=== PATIENT | female | born 1970 | race American Indian/Alaskan Native ===

== ENCOUNTER 2017-01-09 19:13 | Inpatient (IN) | payer OTHER ==
[2017-01-09 20:07] LABS: Basophils % (Auto) 0.4 % (0.0-1.8); Eosinophils % (Auto) 0.2 % (0.0-4.3); Hemoglobin 12.5 gm/dl (10.1-14.3); Mean Corpuscular HGB Conc 32 % (30-34); Mean Corpuscular Hemoglobin 27 pg (28-32); Mean Corpuscular Volume 84 fl (79-97); Platelet Count 287 K/mm3 (140-440); Red Blood Count 4.66 M/mm3 (3.65-5.03); Red Cell Distribution Width 14.5 % (13.2-15.2); White Blood Count 12.5 K/mm3 (4.5-11.0)
[2017-01-09 20:22] LABS: Alanine Aminotransferase 15 units/L (7-56); Albumin 4.1 g/dL (3.9-5); Albumin/Globulin Ratio 1.1 %; Alkaline Phosphatase 58 units/L (35-129); Anion Gap 17 mmol/L; BUN/Creatinine Ratio 7.77; Bilirubin,Total 0.7 mg/dL (0.1-1.2); Blood Urea Nitrogen 7 mg/dL (7-17); Calcium 8.8 mg/dL (8.4-10.2); Carbon Dioxide 24 mmol/L (22-30); Chloride 98.3 mmol/L (98-107); Glucose 122 mg/dL (65-100); Lipase 25 units/L (13-60); Potassium 4.1 mmol/L (3.6-5.0); Sodium 135 mmol/L (137-145); Total Protein 7.7 g/dL (6.3-8.2)
[2017-01-09] MEDS ORDERED: ZOFRAN ODT PO ONE (20:31)
--- NOTE | 2017-01-09 20:33 | Emergency Department Report ---
Chief Complaint: Abdominal Pain Stated Complaint: N/V Time Seen by Provider: 01/09/17 20:27 - HPI History of Present Illness: 46-year-old -Thai female comes in for nausea and vomiting that started Tuesday. Patient pushes unable to keep any food down or fluids. Patient has no past medical history currently on no medication. She complains of right side abdominal pain. Sitting forward makes it better. Lying back makes it worse. They have tried [id number] Pepto-Bismol as well as T's with no relief. - Exam Vital Signs: Vital Signs 01/09/17 01/09/17 19:40 19:44 Temperature 98.3 F 98.5 F Pulse Rate 73 73 Respiratory 20 20 Rate Blood Pressure 167/100 Blood Pressure 167/100 [Left] O2 Sat by Pulse 100 100 Oximetry Physical Exam: Patient's alert and oriented. She appears to be discomfort. Cardiovascular S1- S2 regular rate and rhythm respiratory clear to station bilateral abdomen soft positive Cowart's sign tenderness to the right upper quadrant. MSE screening note: Focused history and physical exam performed. Due to findings the following was ordered: Abdominal protocol ordered. Ultrasound limited right upper quadrant concern for gallbladder disease. Patient be evaluated in the main ER also patient was ordered Zofran 8 mg by mouth. ED Medical Decision Making - Lab Data Result diagrams: 01/09/17 19:50 01/09/17 19:50 ED Disposition for MSE Condition: Stable Instructions: Abdominal Pain (ED)
--- NOTE | 2017-01-09 21:52 | Ultrasound Report ---
FINAL REPORT EXAM: US ABDOMEN LIMITED HISTORY: nausea vomiting or right upper quadrant tenderness TECHNIQUE: Ultrasound abdomen PRIORS: None. FINDINGS: No focal abnormality is identified within the visualized portion of the liver parenchyma. No evidence for intrahepatic or extrahepatic biliary dilatation. Common bile duct is dilated 6.5 centimeters Shadowing echogenic foci are present within the lumen of the gallbladder. Gallbladder wall is mildly thickened measuring 4.3 centimeters. There is small amount pericholecystic fluid noted. Pancreas is incompletely seen. Visualized portions are unremarkable. The right kidney is There is no evidence for hydronephrosis IMPRESSION: Cholelithiasis. Dilated common bile duct. Findings suggestive of choledocholithiasis and/or cholecystitis
[2017-01-09] MEDS ORDERED: NACL 0.9% 1000 ML 1,000 ML ONE (21:59)
[2017-01-09] MEDS ORDERED: NACL 0.9% 1000 ML 1,000 ML IV ONE (22:02)
[2017-01-09] MEDS ORDERED: MORPHINE IV ONE (22:02)
[2017-01-09] MEDS ORDERED: ZOFRAN IV ONE ×2 (22:02→23:25)
[2017-01-09 22:11] LABS: Bacteria,Urine 2+ /HPF (Negative); Bilirubin,Urine NEG (Negative); Blood,Urine LG (Negative); Ketones,Urine TR mg/dL (Negative); Leukocyte Esterase,Urine LG (Negative); Mucus,Urine 2+ /HPF; Nitrite,Urine NEG (Negative); Urobilinogen,Urine < 2.0 mg/dL (<2.0)
--- NOTE | 2017-01-09 22:28 | Emergency Department Report ---
HPI - General Chief Complaint: Abdominal Pain Time Seen by Provider: 01/09/17 20:57 - HPI HPI: The patient is a 46-year-old female who presents for evaluation of abdominal pain. The patient reports right upper quadrant abdominal pain for the past 2 days, constant, worsening, currently 9/10 in severity, sharp and at times squeezing in quality, exacerbated with drinking or eating. The patient also reports associated nausea, , severe, on and off. The patient denies chest pain, dyspnea, diarrhea, blood in the stool, dark tarry stool, dysuria, hematuria, flank pain, genital discharge, inability to pass flatus. ED Past Medical Hx - Past Medical History Previous Medical History?: No - Surgical History Past Surgical History?: Yes Additional Surgical History: tubal ligation. x3 - Social History Smoking Status: Never Smoker Substance Use Type: None - Medications Home Medications: Home Medications Medication Instructions Recorded Confirmed Last Taken Type HYDROcodone/APAP 7.5-325 [[place] 1 each PO Q8HR PRN #12 tablet 01/09/17 Unknown Rx 7.5-325 mg TAB] Ondansetron [Zofran TAB] 4 mg PO Q8HR PRN #15 tablet 01/09/17 Unknown Rx ED Review of Systems ROS: Stated complaint: N/V Other details as noted in HPI Constitutional: denies: fever ENT: denies: throat or neck pain Respiratory: denies: cough, shortness of breath Cardiovascular: denies: chest pain Endocrine: denies unexplained weight loss or gain Gastrointestinal: reports abdominal pain, nausea, vomiting Genitourinary: denies: dysuria Musculoskeletal: denies: leg swelling Skin: denies: rash Neurological: denies: headache Hematological/Lymphatic: denies: easy bleeding or easy bruising Psych: denies sadness or hopelessness Physical Exam - Physical Exam Vital Signs: Vital Signs 01/09/17 01/09/17 19:40 19:44 Temperature 98.3 F 98.5 F Pulse Rate 73 73 Respiratory 20 20 Rate Blood Pressure 167/100 Blood Pressure 167/100 [Left] O2 Sat by Pulse 100 100 Oximetry Physical Exam: General: well-nourished, well-developed, no acute distress Head: Normocephalic, atraumatic Eyes: normal sclera ENT: Mucous membranes are pale and dry Neck: No neck stiffness, no cervical adenopathy Respiratory: Breath sounds equal bilaterally, no wheezing, rales, or rhonchi Cardio: S1 and S2 present, no murmurs, rubs, gallops, capillary refill is delayed Abdomen: Normoactive bowel sounds, soft abdomen, right upper quadrant tenderness to palpation present, no pain in McBurney's point, no rigidity, no guarding or rebound tenderness Chest WALL/Back: No tenderness to palpation of the chest wall, no CVA tenderness with percussion Musc: No pitting edema Skin: No rash Neuro: no facial drooping, normal speech Psych: Normal affect ED Course Vital Signs 01/09/17 01/09/17 19:40 19:44 Temperature 98.3 F 98.5 F Pulse Rate 73 73 Respiratory 20 20 Rate Blood Pressure 167/100 Blood Pressure 167/100 [Left] O2 Sat by Pulse 100 100 Oximetry ED Medical Decision Making - Lab Data Result diagrams: 01/09/17 19:50 01/09/17 19:50 - Medical Decision Making The patient was seen and examined by myself. The patient is placed on a clinical research monitor and continuous pulse ox. On initial evaluation, the patient was found to be in no distress. Evaluation orders are placed. IV access is established and the patient is given 1 L normal saline fluid bolus and Zofran for nausea, and IV morphine for pain. Lab results revealed leukocytosis, WBC 12.5, and otherwise labs were non-concerning including normal levels of hemoglobin, hematocrit, renal function, LFTs, lipase, and negative test. Ultrasound of the abdomen reveals findings suggestive of acute cholecystitis. CT scan of the abdomen and pelvis with IV contrast is positive for cholecystitis, and negative for biliary duct dilation. Zosyn and Flagyl are ordered for the patient. The patient is given an IV dose of Dilaudid for pain. The patient was reevaluated and remained with refractory pain and nausea , despite an additional dose of IV Dilaudid and Zofran. As the patient's pain is refractory, she will be admitted for continued management. The on-call general surgeon Dr. Hirsch was contacted. He agreed to admit the patient. The admit him bridging orders were placed. The patient was admitted in guarded condition. Critical care attestation.: If time is entered above; I have spent that time in minutes in the direct care of this critically ill patient, excluding procedure time. ED Disposition Clinical Impression: Acute abdominal pain in right upper quadrant, Dehydration, Nausea and vomiting in adult patient, Cholecystitis, acute Disposition: OP ADMITTED IP TO THIS HOSP Is pt being admited?: Yes Does the pt Need Aspirin: Yes Condition: Serious Time of Disposition: 21:47
[2017-01-09] MEDS ORDERED: DILAUDID IV ONE (23:25)
[2017-01-09] MEDS ORDERED: NACL ONE (23:47)
--- NOTE | 2017-01-10 00:57 | Cat Scan Report ---
FINAL REPORT PROCEDURE: CT ABDOMEN PELVIS W CON TECHNIQUE: Computerized axial tomography of the abdomen and pelvis was performed after the IV injection of iodinated nonionic contrast. HISTORY: RUQ abdominal pain COMPARISON: 01/09/2017 FINDINGS: Visualized lower thorax: No significant abnormality. Liver: Normal size and attenuation. Spleen: Normal size and attenuation. Gallbladder and biliary system: There is thickening of the gallbladder wall with pericholecystic fluid. There are stones. Findings are consistent with acute cholecystitis. There is no biliary ductal dilatation.. Pancreas: Normal. Adrenals: Normal. Kidneys: Normal. GI tract: There is no bowel obstruction, colitis or enteritis. The appendix is normal.. Lymph nodes and mesentery: Normal. Vasculature: Normal. Bladder: Normal. Reproductive organs: Uterus and ovaries are unremarkable.. Peritoneum: There is minimal fluid in the pelvic cul-de-sac. There is no free air, abscess or adenopathy.. Musculoskeletal structures: No significant abnormality. Other: None. IMPRESSION: There is thickening of the gallbladder wall with pericholecystic fluid. There are stones. Findings are consistent with acute cholecystitis. There is no biliary ductal dilatation.. There is no bowel obstruction, colitis or enteritis. The appendix is normal.. Uterus and ovaries are unremarkable.. There is minimal fluid in the pelvic cul-de-sac. There is no free air, abscess or adenopathy..
[2017-01-10] MEDS ORDERED: DILAUDID IV ONE (02:52)
[2017-01-10] MEDS ORDERED: NACL 0.9% IV ONE (02:53)
[2017-01-10] MEDS ORDERED: BABY ASPIRIN PO ONE (02:54)
[2017-01-10] MEDS ORDERED: FLAGYL 500 MG/100 ML 500 MG/100 ML BAG IV ONE ×2 (03:00→07:00)
[2017-01-10] MEDS ORDERED: NACL 0.9% 1000 ML 1,000 ML IV SCH ×2 (04:00→12:00)
[2017-01-10] MEDS ORDERED: ZOSYN/NS 3.375GM/50ML 3.375 GM/50 ML BAG IV SCH (04:00)
[2017-01-10] MEDS ORDERED: TYLENOL PO ONE (04:39)
[2017-01-10] MEDS: ZOSYN/NS 3.375GM/50ML 3.375 GM/50 ML BAG IV SCH ×3 (06:15→22:06)
[2017-01-10] MEDS: MORPHINE IV PRN ×4 (06:15→22:04)
--- NOTE | 2017-01-10 09:16 | Admit Criteria Form ---
Admission Criteria Documentation: GALLBLADDER OR BILE DUCT INFLAMMATION OR STONE Clinical Indications for Admission to Inpatient Care ( Place 'X' for any and all applicable criteria): Admission is indicated for patients with ANY ONE of the following(1)(2)(3)(4)(5) : [X]I. Acute cholecystitis as indicated by ALL of the following: [X]a) Right upper quadrant pain, mass, or tenderness [X]b) Systemic signs of inflammation indicated by ANY ONE of the following: [ ]i) Fever [ ]ii) C-reactive protein level greater than 10 mg/L (95 nmol/L) [X]iii) White blood cell count greater than 10,000/mm3 (10 x109/L) or less than 4000/mm3 (4 x109/L) [ ]II. Inpatient admission required rather than observation care (Also use Gallbladder or Bile Duct Inflammation or Stone: Observation Care as appropriate) because of ANY ONE of the following: [ ]a) Common bile duct obstruction diagnosed [ ]b) Vomiting that is severe or persistent [ ]c) Severe pain requiring acute inpatient management [ ]d) Signs of intestinal obstruction or peritonitis [A] [ ]e) Severe electrolyte abnormalities requiring inpatient care [ ]f) Absent bowel sounds with complete ileus(8) [ ]g) Hemodynamic instability [ ]h) High fever or infection requiring inpatient admission as indicated by ANY ONE of the following (9): [ ]1) Appropriate outpatient or observation care antimicrobial Treatment. unavailable, not effective, or not feasible [ ]2) Temperature greater than 104.9 degrees F (40.5 degrees C) (oral) [ ]3) Temperature greater than 103.1 degrees F (39.5 degrees C) (oral) or less than 96.8 degrees F (36 degrees C) (rectal) that does not respond to all emergency treatment measures [ ]4) Documented bacteremia [ ]i) IV fluid to replace significant ongoing losses (greater than 3 L/m2 per day) [ ]j) Percutaneous or open drainage (eg, abscess, biliary tract) procedures [ ]k) Immediate inpatient surgery [ ]l) Other condition, treatment or monitoring requiring inpatient admission [ ]III. Acute cholangitis as indicated by ALL of the following(9)(10): [ ]a) Systemic signs of inflammation indicated by ANY ONE of the following: [ ]i) Fever [ ]ii) C-reactive protein level greater than 10 mg/L (95 nmol /L) [ ]iii) White blood cell count greater than 10,000/mm3 (10 x109/L) or less than 4000/mm3 (4 x109/L) [ ]b) Evidence of common bile duct disease indicated by ANY ONE of the following: [ ]i) Total serum bilirubin level greater than or equal to 2 mg/dL (34 micromoles/L) [ ]ii) Liver function test (alkaline phosphatase (ALP), r- glutamyltransferase (GGT), aspartate aminotransferase (AST), or alanine aminotransferase (ALT)) greater than 1.5 times the upper limit of normal[B] [ ]iii) Hepatobiliary imaging showing biliary dilatation or evidence of etiology (eg, stricture, stone, previously placed stent) Extended stay beyond goal length of stay may be needed for (1)(2)): [ ]a) Bacteremia or Hemodynamic instability [ ]b) Cholecystectomy [ ]c) Other surgical procedure(24) [ ]d) Percutaneous or endoscopic ultrasound-guided cholecystostomy The original [facility] content created by [facility] has been revised. The portions of the content which have been revised are identified through the use of italic text or in bold, and [facility] has neither reviewed nor approved the modified material. All other unmodified content is copyright [facility]. Please see references footnoted in the original [facility] edition 2016 Admission Criteria Met: Yes
--- NOTE | 2017-01-10 10:43 | Consultation ---
History of Present Illness Consult date: 01/10/17 Reason for consult: gallstones Requesting physician: CECE PALAFOX Chief complaint: Right upper quadrant abdominal pain. - History of present illness History of present illness: 46 years old female came to the emergency room with 2 days history of right upper quadrant abdominal pain, nausea and vomiting. Gallbladder ultrasound and CT of the abdomen showed gallstones and acute cholecystitis. Patient was admitted to the hospital by Dr. Palafox. She requested a second opinion and Dr. Palafox contacted me to see the patient for second opinion. Past History Past Medical History: No medical history Past Surgical History: (3), Other (tubal ligation) Social history: no significant social history, lives with family Family history: no significant family history Medications and Allergies Allergies Allergy/AdvReac Type Severity Reaction Status Date / Time No Known Allergies Allergy Verified 01/09/17 19:40 Home Medications Medication Instructions Recorded Confirmed Last Taken Type HYDROcodone/APAP 7.5-325 [[place] 1 each PO Q8HR PRN #12 tablet 01/09/17 Unknown Rx 7.5-325 mg TAB] Ondansetron [Zofran TAB] 4 mg PO Q8HR PRN #15 tablet 01/09/17 Unknown Rx Active Meds: Active Medications Sodium Chloride (Nacl 0.9% 1000 Ml) 1,000 mls @ 999 mls/hr IV ONCE ONE Last Admin: 01/09/17 22:20 Dose: 999 mls/hr Sodium Chloride (Nacl 0.9% 1000 Ml) 1,000 mls @ 125 mls/hr IV DIRECT LUISA Last Admin: 01/10/17 06:25 Dose: 125 mls/hr Piperacillin Sod/Tazobactam Sod (Zosyn/Ns 3.375gm/50ml) 3.375 gm in 50 mls @ 100 mls/hr IV Q6H LUISA Last Admin: 01/10/17 06:15 Dose: 100 mls/hr Morphine Sulfate (Morphine) 4 mg IV ONCE ONE Last Admin: 01/09/17 22:40 Dose: 4 mg Morphine Sulfate (Morphine) 4 mg IV Q2HR PRN PRN Reason: Pain Last Admin: 01/10/17 06:15 Dose: 4 mg Ondansetron HCl (Zofran) 4 mg IV Q6HR PRN PRN Reason: Nausea Review of Systems All systems: negative (present complaint) Exam Vital Signs Temp Pulse Resp BP Pulse Ox 98.3 F 73 20 167/100 100 01/09/17 19:40 01/09/17 19:40 01/09/17 19:40 01/09/17 19:40 01/09/17 19:40 - General physical appearance Positive: well developed, well nourished, no distress, obese - Eyes Positive: PERRL, normal occular movement - ENT Positive: normal pinna, normal nares, normal mucosa, no hearing loss, no congestion - Neck Positive: no masses, no bruits, trachea midline, no venous distension - Respiratory Positive: normal expansion, normal respiratory effort, clear to auscultation - Cardiovascular Rhythm: regular Heart Sounds: Present: S1 & S2 - Extremities Extremities: no ischemia, pulses symmetrical, No edema - Breasts Breasts: deferred - Abdomen Abdomen: Present: soft, tender (deep palpation in the right upper quadrant), bowel sounds normal - Genitourinary Female Genitourinary: deferred - Integumentary no rash, no growths, no abnormal pigmentation - Neurologic Neurologic: alert and oriented to time, place and person, motor strength and sensation are grossly intact - Musculoskeletal normal gait, normal posture Results - Labs 01/09/17 19:50 01/09/17 19:50 - Imaging CT scan - abdomen: report reviewed, image reviewed US - abdomen: report reviewed, image reviewed (All images reviewed with Dr. Luis.) Assessment and Plan Impression: Acute cholecystitis and cholelithiasis. Recommendations: Laparoscopic cholecystectomy. The patient was explained the operative procedure, the risks and complications. We discussed risks like quadriplegia, paraplegia, paralysis, loss of limb, loss of eyesight, coma and/or . Also discussed complications like bleeding , infection, bile duct injuries, bile duct strictures, bile duct leaks, blood vessel injuries with possible bleeding, intestinal injuries and leaks leading to intestinal fistulas requiring multiple open surgeries. Also discussed the possibility of having to do an open cholecystectomy. The patient understands requested us to perform the procedure.
[2017-01-10] MEDS ORDERED: ZOFRAN IV PRN (11:31)
[2017-01-10] MEDS ORDERED: XYLOCAINE MPF 2% ONE (11:35)
[2017-01-10] MEDS ORDERED: DILAUDID ONE (11:35)
[2017-01-10] MEDS ORDERED: ZEMURON IV ONE (11:35)
[2017-01-10] MEDS ORDERED: DIPRIVAN 10 MG/ML IV ONE (11:35)
[2017-01-10] MEDS ORDERED: PEPCID PO NR (12:00)
[2017-01-10] MEDS ORDERED: VERSED IV NR (12:00)
--- NOTE | 2017-01-10 12:30 | Anesthesia Day of Surgery ---
Anesthesia Day of Surgery - Day of Surgery Patient Examined: Yes Patient H&P Reviewed: Yes Patient is NPO: Yes
--- NOTE | 2017-01-10 12:30 | Anesthesia Consultation ---
Anesthesia Consult and Med Hx Date of service: 01/10/17 - Airway Anesthetic Teeth Evaluation: Poor, Partials ROM Head & Neck: Adequate Mental/Hyoid Distance: Adequate Mallampati Class: Class II Intubation Access Assessment: Probably Good (missing teeth, but no loose teeth per patient) - Pulmonary Exam CTA: Yes - Cardiac Exam Cardiac Exam: RRR - Pre-Operative Health Status ASA Pre-Surgery Classification: ASA3 Proposed Anesthetic Plan: General - Pulmonary Hx Smoking: No Hx Asthma: No Hx Pneumonia: No - Cardiovascular System Hx Hypertension: No Hx Coronary Artery Disease: No - Central Nervous System Hx Seizures: No CVA: No Hx Psychiatric Problems: No - Endocrine Hx Renal Disease: No Hx Liver Disease: No Hx Thyroid Disease: No - Other Systems Hx Obesity: Yes (morbidly obese, BMI 45.7)
[2017-01-10] MEDS ORDERED: ZOFRAN ONE (12:56)
[2017-01-10] MEDS ORDERED: DECADRON ONE (12:56)
[2017-01-10] MEDS ORDERED: PEPCID IV ONE (13:00)
[2017-01-10] MEDS ORDERED: NACL 0.9% 1000 ML 1,000 ML ONE (13:08)
[2017-01-10] MEDS ORDERED: NEO SYNEPHRINE/NS Syringe(OR USE) IV ONE (13:09)
[2017-01-10] MEDS ORDERED: ROBINUL ONE (13:59)
[2017-01-10] MEDS ORDERED: NEOSTIGMINE ONE (13:59)
[2017-01-10] MEDS ORDERED: MARCAINE 0.5% INFILTRATI ONE ×2 (14:00)
[2017-01-10] MEDS ORDERED: NACL 0.9% IR ONE (14:00)
[2017-01-10] MEDS ORDERED: D5W/0.45% NACL/KCL 20 MEQ 20 MEQ/1,000 ML BAG IV ONE (14:40)
--- NOTE | 2017-01-10 14:56 | Operative Report ---
Operative Report Operative Report: Date of operation: 01/10/2017. Preoperative diagnosis: Acute cholecystitis and cholelithiasis. Postoperative diagnosis: Acute cholecystitis and cholelithiasis. Operation: Laparoscopic and open cholecystectomy. Surgeon: Xander Florence M.D. Asst.: Soumya Hirsch M.D. Findings: 46 years old female admitted to the hospital with a diagnosis of acute cholecystitis and cholelithiasis. Was seen by Dr. Tompkins but the patient refused to have surgery with him. I was called to see her in second opinion consult. The patient had clinical and radiologic evidence of acute cholecystitis and cholelithiasis. We recommended surgery but she asked me to perform the surgery. At operration today we found an acutely inflamed gallbladder with multiple large gallstones. The common bile duct seemed to be normal. Procedure: Under general anesthesia the patient was prepped and draped in the usual sterile manner. Marcaine 0.5% was injected in the right subcostal area and a 5 mm incision was made with a #11 blade. Through this incision a Veress needle was passed in the abdominal cavity which was insufflated with carbon dioxide to 15 mmHg. Then a 5 mm port was put in place using the Enviroo system. Through this port a 5 mm telescope was passed and then under direct vision and after injecting Marcaine 0.5%, another 5 mm port was put in the umbilical area. The telescope was changed to the umbilical port. Then under direct vision and after injecting Marcaine 0.5% another 5 mm port was put in the right subcostal area and a 10 mm port was put in the epigastric area. Then the omental adhesions were taken down using an Endo Kitner to the area of the infundibulum. This was done after the gallbladder was emptied as much as possible of bile using a laparoscopic needle through the fundus. The dissection of the infundibulum became very difficult because of all the adhesions and the hardness of the tissue in the site. We could not identify the asif hepatis we decided to convert to an open cholecystectomy. The preparations for an open cholecystectomy were made. A right subcostal incision was done with a #10 blade. Exit carried down through the subcutaneous tissue with the electrocautery. The anterior rectus sheath and the right external oblique fascia were divided with electrocautery. The rectus muscle was dissected away from the posterior teeth and divided also with the electrocautery. Theater to separate the hernia were grasped with Megha clamps and entered with electrocautery. Again using the electrocautery we completed the incision in the pericardium and the internal oblique and transversalis muscle. The middle laps were put in place for retraction. Then a pursestring of 2-0 chromic was put on the fundus and using the gallbladder trocar we finish emptying the gallbladder. Started dissection of the fundus with the electrocautery and bluntly with my index finger and a Megha clamp. Dissection was taken all the way down to the infundibulum. The cystic artery was identified and divided distal to Hemoclip. Continue finger dissection to identify the cystic duct. We made certain that this was the only structure coming into the gallbladder we went ahead and divided it distal to 3 hemoclips very close to the gallbladder. The gallbladder was then removed for operative field. The area of the asif hepatis was inspected for bleeders and/or bile leaks, none were found. The gallbladder fossa in Morison's pouch were irrigated with copious amounts of normal saline solution. Then a #19 Rafael drain was put through one of the 5 mm port incision in the right subcostal area and left in the subhepatic space. The drain was fixed to the skin with a 2-0 silk suture. Preparations were made for closure of the abdominal cavity. The cavity was closed using a running stitch of #1 Vicryl for the posterior rectus sheath and internal oblique and transversus muscle. Then the anterior rectus sheath and the fascia of the external oblique were approximated with interrupted stitches of #1 Vicryl. Subcutaneous tissue was irrigated with copious amount of normal saline solution. The skin edges of all incisions were approximated with skin chetan except the umbilical incision which was approximated with an intracuticular suture of 4-0 Vicryl. The wounds were dressed with sterile dressings. The patient was awakened, extubated and transferred to the recovery room in good condition. Estimated blood loss: 150 mL. Intravenous fluid replacement: Crystalloids. Condition: Stable. Specimen: Gallbladder.
[2017-01-10] MEDS: DILAUDID IV PRN ×2 (15:02→15:15)
--- NOTE | 2017-01-10 15:39 | Post Anesthesia Evaluation ---
- Post Anesthesia Evaluation Patient Participated: Yes Airway Patent: Yes Stable Respiratory Function: Yes Nausea/Vomiting: No Temp > 96.8F: Yes Pain Manageable: Yes Adequeate Hydration: Yes Anesthesia Complications: No Block Receding Appropriately: Not Applicable Patient on Ventilator: No
[2017-01-10] MEDS ORDERED: D5W/0.45% NACL/KCL 20 MEQ 20 MEQ/1,000 ML BAG IV SCH (19:36)
[2017-01-10] MEDS: ZOFRAN IV PRN (22:04)
--- NOTE | 2017-01-11 01:58 | Consultation ---
HISTORY OF PRESENT ILLNESS: The patient came to the ER last night with severe abdominal pain, nausea and vomiting. She was found to have gallbladder disease with stones and a thickened wall as well as pericholecystic fluid. I came to see her this morning. Apparently, the patient wants to have a second opinion after I indicated to her that she would need an operation. So, Dr. Florence seen her. Thanks to him. She elected to have him handle her surgery. I did talk to and he was very very receptive to the idea. So, I am going to just follow up on her management leaving that for Dr. Florence to handle. JOB# [id number] NICHOLAS/SEUN GONZALEZ
[2017-01-11] MEDS: MORPHINE IV PRN ×5 (02:12→23:56)
[2017-01-11 05:28] LABS: Basophils % (Auto) 0.3 % (0.0-1.8); Eosinophils % (Auto) 0.1 % (0.0-4.3); Hematocrit 33.9 % (30.3-42.9); Hemoglobin 10.8 gm/dl (10.1-14.3); Mean Corpuscular HGB Conc 32 % (30-34); Mean Corpuscular Hemoglobin 27 pg (28-32); Mean Corpuscular Volume 85 fl (79-97); Platelet Count 243 K/mm3 (140-440); Red Blood Count 4.01 M/mm3 (3.65-5.03); Red Cell Distribution Width 14.9 % (13.2-15.2)
[2017-01-11] MEDS: ZOSYN/NS 3.375GM/50ML 3.375 GM/50 ML BAG IV SCH ×4 (05:37→19:59)
[2017-01-11 05:47] LABS: Albumin/Globulin Ratio 0.8 %; Bilirubin,Total 0.5 mg/dL (0.1-1.2); Calcium 7.7 mg/dL (8.4-10.2); Chloride 102.6 mmol/L (98-107); Potassium 3.9 mmol/L (3.6-5.0); Total Protein 6.9 g/dL (6.3-8.2)
[2017-01-11] MEDS: ZOFRAN IV PRN (05:52)
[2017-01-11] MEDS: PROTONIX PO SCH (10:24)
--- NOTE | 2017-01-11 11:22 | Progress Note ---
Assessment and Plan IMP: Doing well 1st post op day. Leukocytosis. PLAN: Clear liquid diet. CBC in am. Subjective Date of service: 01/11/17 Patient Reports: Positive: still having pain (incisional) Objective Vital Signs - 12hr 01/11/17 01/11/17 01/11/17 03:56 08:00 10:36 Temperature 98.8 F 98.2 F Pulse Rate [ 72 86 Right Brachial] Respiratory 20 20 20 Rate Blood Pressure 101/62 88/60 [Left Arm] Blood Pressure 88/60 [Right Arm] O2 Sat by Pulse 94 100 Oximetry - Abdomen soft, tender (op site), bowel sounds normal, wound (dressings dry and clear.), other (drain: 85 ml.) - Labs 01/11/17 05:06 01/11/17 05:06 Diabetes panel 01/11/17 Range/Units 05:06 Sodium 138 (137-145) mmol/L Potassium 3.9 (3.6-5.0) mmol/L Chloride 102.6 (98-107) mmol/L Carbon Dioxide 22 (22-30) mmol/L BUN 12 (7-17) mg/dL Creatinine 1.2 (0.7-1.2) mg/dL Glucose 103 H (65-100) mg/dL Calcium 7.7 L (8.4-10.2) mg/dL AST 60 H (5-40) units/L ALT 49 (7-56) units/L Alkaline Phosphatase 51 (35-129) units/L Total Protein 6.9 (6.3-8.2) g/dL Albumin 3.0 L (3.9-5) g/dL Calcium panel 01/11/17 Range/Units 05:06 Calcium 7.7 L (8.4-10.2) mg/dL Albumin 3.0 L (3.9-5) g/dL Pituitary panel 01/11/17 Range/Units 05:06 Sodium 138 (137-145) mmol/L Potassium 3.9 (3.6-5.0) mmol/L Chloride 102.6 (98-107) mmol/L Carbon Dioxide 22 (22-30) mmol/L BUN 12 (7-17) mg/dL Creatinine 1.2 (0.7-1.2) mg/dL Glucose 103 H (65-100) mg/dL Calcium 7.7 L (8.4-10.2) mg/dL Adrenal panel 01/11/17 Range/Units 05:06 Sodium 138 (137-145) mmol/L Potassium 3.9 (3.6-5.0) mmol/L Chloride 102.6 (98-107) mmol/L Carbon Dioxide 22 (22-30) mmol/L BUN 12 (7-17) mg/dL Creatinine 1.2 (0.7-1.2) mg/dL Glucose 103 H (65-100) mg/dL Calcium 7.7 L (8.4-10.2) mg/dL Total Bilirubin 0.5 (0.1-1.2) mg/dL AST 60 H (5-40) units/L ALT 49 (7-56) units/L Alkaline Phosphatase 51 (35-129) units/L Total Protein 6.9 (6.3-8.2) g/dL Albumin 3.0 L (3.9-5) g/dL
[2017-01-12] MEDS: ZOSYN/NS 3.375GM/50ML 3.375 GM/50 ML BAG IV SCH ×4 (00:25→18:27)
[2017-01-12 06:13] LABS: Basophils % (Auto) 0.3 % (0.0-1.8); Eosinophils % (Auto) 0.7 % (0.0-4.3); Hematocrit 30.3 % (30.3-42.9); Hemoglobin 9.8 gm/dl (10.1-14.3); Mean Corpuscular HGB Conc 32 % (30-34); Mean Corpuscular Hemoglobin 27 pg (28-32); Mean Corpuscular Volume 84 fl (79-97); Platelet Count 231 K/mm3 (140-440); Red Blood Count 3.62 M/mm3 (3.65-5.03); Red Cell Distribution Width 14.5 % (13.2-15.2); White Blood Count 8.1 K/mm3 (4.5-11.0)
[2017-01-12] MEDS ORDERED: DULCOLAX PR PRN (10:49)
--- NOTE | 2017-01-12 10:49 | Progress Note ---
Assessment and Plan IMP: Doing wll 2nd post op day. PLAN: Full liquid diet. Dulcolax suppository. Subjective Date of service: 01/12/17 Patient Reports: Positive: no new complaints, feels better, pain is less, voiding w/o difficulty, no flatus, no bowel movement Objective Vital Signs - 12hr 01/11/17 01/11/17 01/12/17 23:52 23:56 01:00 Temperature 99.1 F Pulse Rate [ 82 Right Brachial] Respiratory 20 16 Rate Respiratory 20 Rate [Abdomen] Blood Pressure 108/65 [Left Arm] O2 Sat by Pulse Oximetry 01/12/17 01/12/17 05:00 08:00 Temperature 99.0 F 98.4 F Pulse Rate [ 75 86 Right Brachial] Respiratory 18 18 Rate Respiratory Rate [Abdomen] Blood Pressure 112/76 124/83 [Left Arm] O2 Sat by Pulse 95 Oximetry - Abdomen soft, tender (op site but less), bowel sounds normal, wound (dressings dry and clear.) - Labs 01/12/17 06:04 01/11/17 05:06
[2017-01-12] MEDS: PROTONIX PO SCH (11:16)
[2017-01-12] MEDS: MORPHINE IV PRN ×2 (12:29→22:35)
[2017-01-13] MEDS: ZOSYN/NS 3.375GM/50ML 3.375 GM/50 ML BAG IV SCH ×3 (00:57→18:50)
[2017-01-13] MEDS: PROTONIX PO SCH (09:44)
--- NOTE | 2017-01-13 11:20 | Progress Note ---
Assessment and Plan IMP: Resolved post op ileus. Bronchitis. PLAN: Chest x rays. Regular diet Subjective Date of service: 01/13/17 Patient Reports: Positive: feels better, pain is less, tolerating liquids well, voiding w/o difficulty, flatus, bowel movement, afebrile, other (reports coughing with some clear expectoration) Objective Vital Signs - 12hr 01/13/17 01/13/17 06:00 07:30 Temperature 98.3 F 98.5 F Pulse Rate [ 72 85 Right Brachial] Respiratory 16 20 Rate Blood Pressure 117/79 116/58 [Left Arm] O2 Sat by Pulse 98 100 Oximetry - Respiratory normal expansion, normal respiratory effort, clear to percussion, other (ronchi right base) - Abdomen soft, tender (mild incisional), bowel sounds normal, wound (dressings dry and clear) - Labs 01/12/17 06:04 01/11/17 05:06
[2017-01-13] MEDS ORDERED: NORCO 5/325 PO PRN (11:23)
[2017-01-13] MEDS ORDERED: COMPAZINE PO PRN (11:24)
--- NOTE | 2017-01-13 12:11 | XRay Report ---
Chest 2 views: History: Right chest rhonchi. Findings: Normal cardiomediastinal silhouette. Trachea is midline. Faint infiltrates right lower lobe. Normal CP angles. Impression: Right lower lobe infiltrates.
[2017-01-13] MEDS: TESSALON PERLES PO SCH ×2 (15:15→22:00)
[2017-01-13] MEDS ORDERED: ZITHROMAX PO ONE (22:00)
[2017-01-13] MEDS ORDERED: ZITHROMAX PO SCH (22:00)
[2017-01-14] MEDS: ZOSYN/NS 3.375GM/50ML 3.375 GM/50 ML BAG IV SCH ×3 (01:22→05:45)
[2017-01-14] MEDS: TESSALON PERLES PO SCH ×2 (05:45→16:00)
[2017-01-14] MEDS ORDERED: ZITHROMAX PO SCH (10:00)
[2017-01-14] MEDS: PROTONIX PO SCH (10:12)
--- NOTE | 2017-01-14 14:13 | Discharge Summary ---
Providers - Providers Date of Admission: 01/10/17 03:51 Date of discharge: 01/14/17 Attending physician: CECE PALAFOX Primary care physician: [employer]EL[employer] DIRECTOR Hospitalization Reason for admission: cholecystitis and cholelithiasis Condition: Serious Pertinent studies: Gallbladder ultrasound. Abdomen and pelvis CT scan. Procedures: Laparoscopic and open cholecystectomy. Hospital course: This 46-year-old female who was admitted to the hospital early on 01/10/[address] Rodriguez. I was consulted for surgical opinion and the patient wanted me to form the operation. That same day she was taken to the operating room and under general anesthesia underwent a laparoscopic and open cholecystectomy. The next stage was started on clear liquid diet. The drain was draining serosanguineous fluid about 85 mL. On the third day she was started on full liquids. Yesterday she was feeling well having bowel movements and urinating fine. She was complaining of persistent cough and expectoration. Chest x-ray was reported with faint infiltrate in the right lower lobe. She was started on Zithromax by mouth. Today she is feeling very well. The lungs are clear with no bronchitis as heard yesterday. So the patient is going to be discharged home today. Disposition: DISCHARGED TO HOME OR SELFCARE - Discharge Diagnoses (1) Cholecystitis, acute Status: Acute Core Measure Documentation - Palliative Care Palliative Care/ Comfort Measures: Not Applicable - Core Measures Any of the following diagnoses?: none Exam - Constitutional Vitals: Temp Pulse Resp BP Pulse Ox 97.9 F 69 20 115/77 98 01/14/17 08:36 01/14/17 08:36 01/14/17 08:36 01/14/17 08:36 01/14/17 08:36 - Respiratory Respiratory effort: normal, other (lungs are clear to auscultation.) - Abdominal General gastrointestinal: Present: soft, tender (mild in the parotid side.), normal bowel sounds, other (wounds dry, clear and healing well.) Plan Activity: advance as tolerated Diet: low fat Wound: open to air Follow up with: [facility] [Provider Group] - 3-5 Days JABIER KIM MD [Staff Physician] - 7 Days Prescriptions: Azithromycin [Zithromax TAB] 250 mg PO QDAY #3 tablet Benzonatate [Tessalon Perles] 200 mg PO Q8HR #30 capsule HYDROcodone/APAP 5-325 [[place] 5-325 mg TAB] 1 each PO Q4H PRN #40 tablet PRN Reason: Pain, Moderate (4-6) HYDROcodone/APAP 7.5-325 [[place] 7.5-325 mg TAB] 1 each PO Q8HR PRN #12 tablet PRN Reason: Pain Ondansetron [Zofran TAB] 4 mg PO Q8HR PRN #15 tablet PRN Reason: Nausea Prochlorperazine [Compazine] 10 mg PO Q6H PRN #30 tablet PRN Reason: Nausea And Vomiting
[2017-01-14 16:46] VITALS: BP 121/81
== END 2017-01-14 18:00 | disposition home or self-care (01) | DRG 416 ==
LOC: ED 19:13 → 2B-SURG 01-10 03:51
PROVIDERS: ADMIT Specialist; ATTEND Surgery
PROC: 0FT40ZZ Resection of Gallbladder, Open Approach (ICD-10-PCS; principal; 2017-01-10)
PROC: 0FJ44ZZ Inspection of Gallbladder, Percutaneous Endoscopic Approach (ICD-10-PCS; 2017-01-10)
DX: K80.00 Calculus of gallbladder with acute cholecystitis without obstruction (principal); E86.0 Dehydration; D72.829 Elevated white blood cell count, unspecified; Z98.51 Tubal ligation status
CPT/HCPCS: 36415; 71020; 74177; 76705; 80053; 81001; 81025; 83690; 84703; 85025; 88304; 96374; 96375; 96376; A4217; J1100; J1170; J2250; J2270; J2370; J2405; J2543; J2704; J2710; J7030; Q0162; Q0164; Q9967